=== PATIENT | male | born 1975 | race Caucasian/White ===

== ENCOUNTER 2022-07-01 01:32 | Emergency (ER) | payer BC, SELFPAY ==
[2022-07-01] VITALS (8 sets, daily range): BP systolic 134–154; BP diastolic 81–99; PULSE 75–99; RESP 16–18; TEMP 36.7–36.8; O2SAT 95–99; BMI 26.5
--- NOTE | 2022-07-01 01:58 | CRLHL7_ITS ---
For Patients: As a result of the Century Cures Act, medical imaging exams and procedure reports are released immediately into your electronic medical record. You may view this report before your referring provider. If you have questions, please contact your health care provider. INDICATION: Right upper quadrant pain, right rib pain, chest pain TECHNIQUE: CT chest was performed with pulmonary angiographic technique. Subsequently, CT abdomen and pelvis with i.v. contrast during the venous phase. Coronal and sagittal reformats were obtained. CONTRAST: 95 mL Isovue 370 COMPARISON: None FINDINGS: CHEST: Cardiovascular: The heart has an unremarkable appearance and size. No CT identified pulmonary emboli are seen. The pulmonary arteries are unremarkable in appearance. No sign of aneurysm or dissection in the thoracic aorta. Mediastinum: No mass or adenopathy seen. Lung: Both lungs are unremarkable in appearance. Pleura and pericardium: No sign of pleural effusion seen. No significant pericardial effusion is present. Chest wall and axilla: No mass or adenopathy seen. Bone: Unremarkable for age. No acute osseous injuries seen. ABDOMEN/PELVIS: Liver: Unremarkable. Spleen: Unremarkable. Pancreas: Unremarkable. Gallbladder: Unremarkable. Kidney: Excretion of contrast into the renal collecting systems and ureters arenoted, which limits evaluation for the presence of stones. Adrenal: Unremarkable. Bowel: Unremarkable. The appendix is normal in appearance and size. Vascular: Unremarkable. Lymph: Unremarkable. Peritoneum: Unremarkable. No pneumoperitoneum is seen. No significant ascites is noted. Pelvis: Mild enlargement of the prostate gland is noted. Soft tissue: Unremarkable. Bone: Unremarkable for age. No acute osseous injuries seen. IMPRESSION: 1. No CT evidence of pulmonary embolism seen. Dictated by Aidan Serra MD @ 07/01/2022 2:43:36 AM Please note that all CT scans at this facility use dose modulation, iterative reconstruction, and/or weight-based dosing when appropriate to reduce radiation dose to as low as reasonably achievable. Dictated by: Aidan Serra MD @ 07/01/2022 02:43:40 (Electronically Signed)
[2022-07-01 02:05] LABS: Basophils Absolute Auto 0.06 K/uL (0.00-0.30); Basophils Percent Auto 0.9 % (0.0-3.0); Eosinophils Absolute Auto 0.36 K/uL (0.00-0.50); Eosinophils Percent Auto 5.3 % (0.0-7.0); Hematocrit 40.3 % (37.0-53.0); Immature Granulocytes Abs Auto 0.02 K/uL (0.00-0.30); Immature Granulocytes Pct Auto 0.3 %; Lymphocytes Percent Auto 35.6 % (20-44); Mean Corpuscular HGB Conc 35 gm/dL (32-36); Mean Corpuscular Hemoglobin 33 pg (26-34); Mean Corpuscular Volume 94 fL (80-100); Monocytes Percent Auto 8.5 % (0.0-11.0); Neutrophils Absolute Auto 3.33 K/uL (1.7-7.0); Neutrophils Percent Auto 49.4 % (42.0-72.0); Platelet Count* 239 K/uL (140-440); RDW Coefficient of Variation % 12.9 % (11.5-15.5); Red Blood Count 4.28 m/uL (4.30-5.90); White Blood Count* 6.74 K/uL (4.50-11.00)
[2022-07-01] MEDS: 0.9 % SODIUM CHLORIDE 1000 ml 1,000 ML IV (02:05)
[2022-07-01] MEDS: ONDANSETRON 2 MG/ML inj 4 MG IVP (02:06)
[2022-07-01 02:07] LABS: Appearance Urine Clear (Clear); Bilirubin Urine Negative (Negative); Blood Urine Negative (Negative); Color Urine Yellow (Yellow); Glucose Urine Negative (Negative); Ketones Urine 1+ (Negative); Leukocyte Esterase Urine Negative (Negative); Nitrite Urine Negative (Negative); Protein Urine Negative (Negative); Urobilinogen Urine 0.2 (0.2-1.0); pH Urine 5.5 (5.0-8.5)
[2022-07-01 02:08] LABS: Slide Review Reflex No
[2022-07-01] MEDS: KETOROLAC 30 MG/ML inj IVP (02:08)
[2022-07-01] MEDS: MORPHINE 4 MG/ML INJ IVP (02:10)
[2022-07-01 02:15] LABS: RBC Urine 0-2 (0-2); Squamous Epithelial Cell Urine Few (None-Few); WBC Urine 0-2 (0-5)
[2022-07-01 02:18] LABS: Albumin* 4.2 g/dL (3.3-5.0); Chloride* 108 mmol/L (96-114)
[2022-07-01 02:21] LABS: Amylase* 65 U/L (18-89); Creatinine* 0.7 mg/dL (0.5-1.5); Est. Creatinine Clearance* 131.81; Estimated Glomerular Filt Rate 113 ml/min
--- NOTE | 2022-07-01 02:21 | ED.ABDPAIN ---
HPI - Abdominal Pain General Date Seen: 07/01/22 Chief Complaint: Rib Pain Stated Complaint: Right side rib pain from fall yesterday Time Seen by Provider: 07/01/22 01:39 Source: patient and family Mode of arrival: ambulatory Limitations: no limitations History of Present Illness HPI narrative: Patient is a 47-year-old gentleman who presents ambulatory to the emergency room for evaluation of right-sided abdominal pain, with radiation to his chest. This is occurring the last 2 hours, woke him from his sleep, he does admit to me that he fell off his patio yesterday, into a plantar on his right side, but today he was fine he actually did even take any medications for the discomfort, he was breathing in everything normal went to sleep and then woke up with this discomfort, he is not nauseated denies any chest pain, there has been no diarrhea, he took some ibuprofen for this at home. Noted no relief. Denies any previous hospitalizations or surgeries, uses occasional alcohol MD elicited complaint: abdominal pain and flank pain Pertinent past history: none Onset (ago): hour(s) (2) Pain Consistency: constant Location: chest (Right), RUQ and R flank Severity: moderate Quality: stabbing and sharp Radiation: R flank Migration to: no migration Exacerbating factors: nothing Relieving factors: nothing Associated symptoms: denies other symptoms Treatments prior to arrival: NSAIDs Related Data Home Medications Medication Instructions Recorded Confirmed No Known Home Medications 07/01/22 07/01/22 Allergies Allergy/AdvReac Type Severity Reaction Status Date / Time No Known Drug Allergies Allergy Verified 07/01/22 01:45 Review of Systems Status of ROS Reports: 10 or more systems reviewed and unremarkable except as noted in History and below [facility] Medical History Depression ?F32.A - Depression, unspecified (ICD-10) Elevated cholesterol ?E78.00 - Pure hypercholesterolemia, unspecified (ICD-10) Habitual alcohol use ?F10.90 - Alcohol use, unspecified, uncomplicated (ICD-10) Surgical History History of vasectomy ?Z98.52 - Vasectomy status (ICD-10) History of wisdom tooth extraction ?K08.409 - Partial loss of teeth, unspecified cause, unspecified class (ICD-10) Social History Smoking Status: Current every day smoker Second hand tobacco smoke exposure: Yes How often do you have a drink containing alcohol: 4 or more times a week How many standard drinks containing alcohol do you have on a typical day: 3 or 4 How often do you have six or more drinks on one occasion: Weekly AUDIT-C Alcohol total score: 8 Non-prescribed substance use: marijuana (any form) Exam Narrative: Exam Narrative: Patient presents with his partner anastasiia, he is seen in room 3, pupils equal round reactive to light, there is no scleral icterus or redness TMs bilaterally are normal his oropharynx is normal, neck is supple full range of motion chest shows good air entry bilaterally with maybe a little bit of splinting on the right side when he takes a deep breath in heart sounds no clicks murmurs or gallops his abdomen is tender in the right upper quadrant, and the right side of his abdomen, no organomegaly is noted. No CVA tenderness noted he moves all extremities independently and well and is neurologically intact. Const: Vital Signs, click to edit/add: Vital Signs - 24 hr 07/01/22 01:43 07/01/22 02:08 07/01/22 02:09 Temperature 98.3 F 98.3 F Pulse Rate 80 Pulse Rate [Right Pulse Oximeter] 99 Respiratory Rate 18 16 Blood Pressure 134/84 Blood Pressure [Le ft Upper Arm] 145/99 H Pulse Oximetry 99 96 Oxygen Delivery Me thod Room Air 07/01/22 02:00 Temperature Pulse Rate Pulse Rate [Right Pulse Oximeter] Respiratory Rate Blood Pressure Blood Pressure [Le ft Upper Arm] Pulse Oximetry 99 Oxygen Delivery Me thod Documenting provider has reviewed patient's vital signs: yes Course Course Hospital Course: I discussed with the patient and also his significant other that the CT scan was read as normal, no acute abnormality, could still be he has a small rib contusion, causing his discomfort but I was reassured by the findings, I was also reassured by the laboratory results which were all normal, I encouraged them to go home try some Tylenol and return if increasing abdominal pain or change in his status. They were comfortable with this Vital Signs Vital signs: Initial Vital Signs Temperature 98.3 F 07/01/22 01:43 Temperature Source Temporal Artery Scan 07/01/22 01:43 Pulse Rate 99 07/01/22 01:43 Respiratory Rate 18 07/01/22 01:43 Blood Pressure 145/99 H 07/01/22 01:43 Blood Pressure Mean 114 07/01/22 01:43 Blood Pressure Position Sitting 07/01/22 01:43 Pulse Oximetry 99 07/01/22 01:43 Oxygen Delivery Method Room Air 07/01/22 01:43 Vital Signs Temperature 98.3 F 07/01/22 01:43 Pulse Rate 99 07/01/22 01:43 Respiratory Rate 18 07/01/22 01:43 Blood Pressure 145/99 H 07/01/22 01:43 Pulse Oximetry 99 07/01/22 01:43 Oxygen Delivery Method Room Air 07/01/22 01:43 Temperature 98.3 F 07/01/22 02:08 Pulse Rate 80 07/01/22 02:09 Respiratory Rate 16 07/01/22 02:09 Blood Pressure 134/84 07/01/22 02:09 Pulse Oximetry 96 07/01/22 02:09 Oxygen Delivery Method Room Air 07/01/22 01:43 MDM - Abdominal Pain MDM Narrative Medical decision making narrative: During this evaluation of this patient I considered multiple differential diagnosis is which included the life-threatening such as appendicitis, aortic aneurysm, mesenteric ischemia, bowel perforation, volvulus, and bowel obstruction. Other differential diagnosis is include but are not limited to cholecystitis, pancreatitis, hepatitis, gastritis, GERD, diverticulitis, peptic ulcer disease, pyelonephritis/UTI, renal colic/stone, testicular torsion as well as other acute scrotal processes, inflammatory bowel disease, as well as other etiologies Medical Records Attestation: I reviewed the patient's medical records. Lab Data Attestation: I reviewed the patient's lab results. Labs: Lab Results 07/01/22 07/01/22 Range/Units 01:57 02:00 WBC 6.74 (4.50-11.00) K/uL RBC 4.28 L (4.30-5.90) m/uL Hgb 14.0 (13.5-17.5) gm/dL Hct 40.3 (37.0-53.0) % MCV 94 (80-100) fL MCH 33 (26-34) pg MCHC 35 (32-36) gm/dL RDW Coeff of Kathie 12.9 (11.5-15.5) % Plt Count 239 (140-440) K/uL Neut % (Auto) 49.4 (42.0-72.0) % Lymph % (Auto) 35.6 (20-44) % Walker % (Auto) 8.5 (0.0-11.0) % Eos % (Auto) 5.3 (0.0-7.0) % Baso % (Auto) 0.9 (0.0-3.0) % Neut # (Auto) 3.33 (1.7-7.0) K/uL Lymph # (Auto) 2.40 (0.90-2.90) K/uL Walker # (Auto) 0.60 (0.00-0.90) K/UL Eos # (Auto) 0.36 (0.00-0.50) K/uL Baso # (Auto) 0.06 (0.00-0.30) K/uL Sodium 137 (135-149) mmol/L Potassium 3.9 (3.6-5.1) mmol/L Chloride 108 (96-114) mmol/L Carbon Dioxide 20 (20-32) mmol/L BUN 12 (5-24) mg/dL Creatinine 0.7 (0.5-1.5) mg/dL Estimated Creat Clear 131.81 Estimated GFR 113 ml/min Glucose 107 (60-115) mg/dL Calcium 8.7 (8.4-10.6) mg/dL Total Bilirubin 0.4 (0.1-1.5) mg/dL Direct Bilirubin 0.3 (0.0-0.5) mg/dL AST 28 (12-35) U/L ALT 24 (4-50) U/L Alkaline Phosphatase 56 (40-150) U/L Troponin I < 0.01 L (0.01-0.04) ng/mL C-Reactive Protein < 0.5 L (0.5-1.0) mg/dL Total Protein 7.3 (6.0-8.3) g/dL Albumin 4.2 (3.3-5.0) g/dL Amylase 65 (18-89) U/L Lipase 123 (23-300) U/L Urine Color Yellow (Yellow) Urine Appearance Clear (Clear) Urine pH 5.5 (5.0-8.5) Ur Specific Evant 1.020 (1.000-1.030) Urine Protein Negative (Negative) Urine Glucose (UA) Negative (Negative) Urine Ketones 1+ A (Negative) Urine Blood Negative (Negative) Urine Nitrite Negative (Negative) Urine Bilirubin Negative (Negative) Urine Urobilinogen 0.2 (0.2-1.0) Ur Leukocyte Esterase Negative (Negative) Urine RBC 0-2 (0-2) Urine WBC 0-2 (0-5) Ur Squamous Epith Cells Few (None-Few) Urine Bacteria None (None) Imaging Data CT Chest/Ab/Pelvis: Attestation: I have reviewed the pertinent imaging results. My impression: No acute finding Radiologist's impression: Patient: HEYDI GUILLORY Facility: [facility] Site . Site : 1975 Study: CT Chest/Abd/Pelvis CHEST/ABDOMEN/PELVIS PE PROTOCOL-07/01/2022 2:34:17 AM Ordering Physician: Zenobia Hunt Final Report: INDICATION: Right upper quadrant pain, right rib pain, chest pain TECHNIQUE: CT chest was performed with pulmonary angiographic technique. Subsequently, CT abdomen and pelvis with i.v. contrast during the venous phase. Coronal and sagittal reformats were obtained. CONTRAST: 95 mL Isovue 370 COMPARISON: None FINDINGS: CHEST: Cardiovascular: The heart has an unremarkable appearance and size. No CT identified pulmonary emboli are seen. The pulmonary arteries are unremarkable in appearance. No sign of aneurysm or dissection in the thoracic aorta. Mediastinum: No mass or adenopathy seen. Lung: Both lungs are unremarkable in appearance. Pleura and pericardium: No sign of pleural effusion seen. No significant pericardial effusion is present. Chest wall and axilla: No mass or adenopathy seen. Bone: Unremarkable for age. No acute osseous injuries seen. ABDOMEN/PELVIS: Liver: Unremarkable. Spleen: Unremarkable. Pancreas: Unremarkable. Gallbladder: Unremarkable. Kidney: Excretion of contrast into the renal collecting systems and ureters arenoted, which limits evaluation for the presence of stones. Adrenal: Unremarkable. Bowel: Unremarkable. The appendix is normal in appearance and size. Vascular: Unremarkable. Lymph: Unremarkable. Peritoneum: Unremarkable. No pneumoperitoneum is seen. No significant ascites is noted. Pelvis: Mild enlargement of the prostate gland is noted. Soft tissue: Unremarkable. Bone: Unremarkable for age. No acute osseous injuries seen. IMPRESSION: 1. No CT evidence of pulmonary embolism seen. Dictated by Aidan Serra MD @ 07/01/2022 2:43:36 AM Please note that all CT scans at this facility use dose modulation, iterative reconstruction, and/or weight-based dosing when appropriate to reduce radiation dose to as low as reasonably achievable. Dictated by: Aidan Serra MD @ 07/01/2022 02:43:40 (Electronic Signature) Discharge Plan Discharge Clinical Impression: Contusion of rib on right side Patient Disposition: Home w/ Parent or Adult Condition: Improved Instructions: Contusion in Adults (ED), Rib Contusion (ED) Additional Instructions: Home rest Tylenol for the discomfort follow-up as needed, reassuring laboratory results and CT. Activity Level: No strenuous activity and Light activity Prescriptions: No Action No Known Home Medications Follow Up/Referrals: Lena Gomes PA-C [Primary Care Provider] - Stand Alone Forms: MyHealth Info Instructions
[2022-07-01 02:22] LABS: Alanine Aminotransferase* 24 U/L (4-50); Alkaline Phosphatase* 56 U/L (40-150); Aspartate Amino Transferase* 28 U/L (12-35); Bilirubin Direct* 0.3 mg/dL (0.0-0.5); Bilirubin Total* 0.4 mg/dL (0.1-1.5); Blood Urea Nitrogen* 12 mg/dL (5-24); Calcium* 8.7 mg/dL (8.4-10.6); Carbon Dioxide* 20 mmol/L (20-32); Glucose* 107 mg/dL (60-115); Lipase* 123 U/L (23-300); Total Protein* 7.3 g/dL (6.0-8.3)
[2022-07-01 02:25] LABS: C Reactive Protein* < 0.5 mg/dL (0.5-1.0)
[2022-07-01 02:34] LABS: Troponin I* < 0.01 ng/mL (0.01-0.04)
[2022-07-01 02:35] LABS: Potassium* 3.9 mmol/L (3.6-5.1); Sodium* 137 mmol/L (135-149)
== END 2022-07-01 03:07 | disposition home or self-care (01) ==
PROVIDERS: Emergency Provider Family Medicine; PCP Student in an Organized Health Care Education/Training Program
DX: S20.221A Contusion of right back wall of thorax, initial encounter (principal); W19.XXXA Unspecified fall, initial encounter
CPT/HCPCS: 36415; 71260; 74177; 80048; 80076; 81001; 82150; 83690; 84484; 85025; 86140; 94761; 96374; 96375; 99284; J1885; J2270; J2405; J7030; Q9967